=== PATIENT | female | born 1990 | race Caucasian/White ===

== ENCOUNTER 2018-03-28 21:39 | Emergency (ER) | payer OTHER, MEDICAID ==
[2018-03-28 23:45] LABS: URINE BLOOD (Dip) POC Negative (NEGATIVE); URINE GLUCOSE (Dip) POC Negative (NEGATIVE); URINE KETONES (Dip) POC Negative (NEGATIVE); URINE LEUKOCYTE EST (Dip) POC Negative (NEGATIVE); URINE NITRITE (Dip) POC Negative (NEGATIVE); URINE TOTAL PROTEIN POC Negative (NEGATIVE)
[2018-03-28] MEDS: SOD CHLORIDE 0.9% 1,000 ML IV (23:47)
[2018-03-28] MEDS: METOCLOPRAMIDE 10 MG INJ IV (23:50)
[2018-03-28] MEDS: DIPHENHYDRAMINE 50 MG INJ IV (23:50)
== END 2018-03-29 00:50 | disposition home or self-care (01) ==
LOC: FTE 03-29 00:50
DX: O21.0 Mild hyperemesis gravidarum (principal); Z3A.10 10 weeks gestation of pregnancy
CPT/HCPCS: 81003; 81025; 99284-25